=== PATIENT | female | born 1950 | race Caucasian/White ===

== ENCOUNTER 2021-08-08 22:42 | Inpatient (IN) | payer MEDICARE, OTHER ==
[~2021-08-08] VITALS: Ht 157.5 cm; Wt 49.9 kg
--- NOTE | 2021-08-08 22:50 | NUR ---
Patient brought in from [facility] on a 5150 for GD. Patient apparently was found crawling on the street, and oblivious to name and situation. Patient is a left below the knee amputee. Patient is alert but not oriented is able to verbalize, "I need my cigarettes." No sitter available, warehouse helper has no staff to provide, and cannot provide security for bedside sitting. Fall and safety precautions implemented per protocol
[2021-08-08] MEDS ORDERED: OXYCODONE/APAP 5-325 MG TABLET PO ONE (23:00)
[2021-08-08] MEDS ORDERED: OXYC-128 PO (23:06)
[2021-08-08] MEDS ORDERED: CIPR5DRO LEFTEYE (23:06)
--- NOTE | 2021-08-09 00:21 | NUR ---
Report given to FÉLIX Newman
--- NOTE | 2021-08-09 01:00 | NUR ---
Danya RN at [facility] informed of patient soft O2 saturations of 92%. Requesting another CXR from ERMD and to further evaluate patient.
--- NOTE | 2021-08-09 01:40 | NUR ---
ERMD placed order to redraw labs, and CTA chest angio to r/o any cardiopulmonary processes.
[2021-08-09] MEDS ORDERED: HALOPERIDOL LACTATE 5 MG/1 ML VIAL IV ONE (01:45)
[2021-08-09] MEDS ORDERED: diphenhydrAMINE 50 MG/1 ML VIAL IV ONE (01:45)
[2021-08-09] MEDS ORDERED: LORAZEPAM 2 MG/1 ML VIAL IV ONE (01:45)
[2021-08-09 01:52] LABS: HEMATOCRIT 39.1 % (31.2-41.9); MEAN CORPUSCULAR HEMOGLOBIN 30.7 uug (24.7-32.8); MEAN CORPUSCULAR VOLUME 91.3 fL (75.5-95.3); PLATELET COUNT (AUTO) 252 K/uL (179-408)
[2021-08-09] MEDS ORDERED: diphenhydrAMINE 50 MG/1 ML VIAL ONE (02:13)
[2021-08-09] MEDS ORDERED: LORAZEPAM 2 MG/1 ML VIAL ONE (02:13)
[2021-08-09] MEDS ORDERED: HALOPERIDOL LACTATE 5 MG/1 ML VIAL ONE (02:13)
[2021-08-09] MEDS ORDERED: IV NS 1000 ML 1,000 ML IV ONE (02:45)
[2021-08-09] MEDS ORDERED: IV NORMAL SALINE 250 ML IV ONE (02:46)
[2021-08-09] MEDS ORDERED: IOHEXOL 350 100 ML INFUS..BTL ONE (02:46)
[2021-08-09] MEDS ORDERED: SWABABLE VALVE TRANSFER SET EA MC ONE (02:46)
--- NOTE | 2021-08-09 03:18 | NUR ---
Patient back in room from CT
[2021-08-09] MEDS ORDERED: levoFLOXacin 500 MG/D5W 500 MG in PREMIXED 1 EACH IV SCH (04:45)
[2021-08-09] MEDS ORDERED: MAGNESIUM HYDROXIDE 30 ML LIQUID UDC PO PRN (04:45)
[2021-08-09] MEDS ORDERED: IV NS 1000 ML 1,000 ML IV PRN (04:45)
[2021-08-09] MEDS ORDERED: Z GUARD REMEDY PASTE 57 GM TUBE TOP PRN (04:45)
[2021-08-09] MEDS ORDERED: ACETAMINOPHEN 325 MG TABLET PO PRN (04:45)
--- NOTE | 2021-08-09 05:00 | NUR ---
Patient will be getting admitted to TELE on a 5150, according to FÉLIX Ty CN she states that there will be a sitter coming around 0630. Patient to go upstairs after shift change.
--- NOTE | 2021-08-09 06:31 | NUR ---
Patient in bed asleep, VSS, no acute distress noted. Bed in lowest position, sr upx2, call light within reach. Fall and safety precautions implemented per protocol. No sitter available per Classroom Teacher. Patient in need of a 1:1 sitter, but word processing supervisor is aware.
[2021-08-09] MEDS ORDERED: levoFLOXacin 500 MG/D5W 100 ML ONE (06:47)
--- NOTE | 2021-08-09 06:47 | NUR ---
Report given to FÉLIX Cruz for continuity of care.
--- NOTE | 2021-08-09 08:26 | NUR ---
PT WAS TRANSFERED TO ROOM #327. REPORT WAS GIVEN TO FÉLIX M/S.
[2021-08-09 08:30] VITALS: BP 90/49
--- NOTE | 2021-08-09 10:44 | NUR ---
Admitted a 71 years old patient from [facility] with history of chest pain, hypoxia and suapected pulmonary embolus, altered mental status. Pt. is on 5150 status for GD. Pt. arrived in a stretcher accompanied by RN. Initial report given by Anthony HEARD. On admission pt. was cooperative to physical assessment and vital signs. Skin body assessment revealed no significant skin integrity breakdown, left below knee amputation. Patient is on Regular Diet. Continent of bladder and bowel. Vital signs within normal limits. Pt. ambulates with assistance, wheel chair. On interview patient appeared alert, oriented to person, confused, redirectable. Patient denies SI/HI AH/VH.Patient is currently free from pain or any discomfort. Fall and safety precautions implemented.
[2021-08-09 11:08] VITALS: BP 136/78
--- NOTE | 2021-08-09 11:25 | NUR ---
ASSUMED CARE OF THIS PATIENT AT THIS TIME SHE IS IN BED WITH EYES CLOSED SHE IS EASILY AROUSABLE ATTEMPTS TO RESPOND WHEN SPOKE TO BUT HER WORDS ARE INCOHERENT PROMPTLY FALLS BACK TO SLEEP ON ROOM AIR WITH NO SHORTNESS OF BREATH SHE IS ON 5150 HOLD WITH A SITTER AT HER BEDSIDE RIGHT AC WITH HEPLOCK INTACT NOT IN DISTRESS AT THIS TIME WILL CONTINUE TO OBSERVE.
[2021-08-09 15:32] VITALS: BP 130/82
--- NOTE | 2021-08-09 17:44 | NUR ---
PATIENT IS CONFUSED AND DISORIENTED PICKING AT HER IV RIGHT ANTECUBITAL RE TAPPED AND COVERED WITH KIRLIX PATIENT IS CONFUSED AND DISORIENTED RAMBLING ABOUT HER SISTER STATED WAS SUPPOSED TO BE IN THE AIRPORT ASKED WHERE HER SISTER WAS LIVING STATED IN [place] ASKED WHAT HER SISTERS NAME IS UNABLE TO PROVIDE AN ANSWER CONTINUE TO REQUIRE AND HAS A ONE ON ONE SITTER AND IS ON HOLE SHE IS CONTINENT AND INCONTINENT RICARDO CARE PROVIDED ALL NEEDS ANTICIPATED AND SATISFIED EASILY REDIRECTABLE WILL CONTINUE TO OBSERVE.
[2021-08-09 20:00] VITALS: BP 139/86
[2021-08-09] MEDS ORDERED: AMOXICILLIN-CLAVUL 500-125MG TABLET PO SCH (21:00)
--- NOTE | 2021-08-09 23:11 | NUR ---
Patient in bed sleeping intermittently in no acute distress noted.Alert to her self .Confused.Re-oriented provided.Patient with episodes of trying to get of bed but able to redirect patient. Denies pain.Left knee BKA.Snacks provided.1:1 sitter at bedside.Patient compliant with medication .Due meds given.Received order from to transfer patient to [facility].Verified order by charge nurse. Ok patient to be transferred to GPS/MHU. Report given to Wendy/[facility]HU nurse.
[2021-08-10] MEDS ORDERED: ALBUTEROL SULFATE 2.5 MG/ 0.5 ML NEBU NEB SCH (01:30)
[2021-08-10] MEDS ORDERED: IPRATROPIUM BROMIDE 0.5 MG/2.5 ML NEBU NEB SCH (01:30)
== END 2021-08-10 00:50 | DRG 194 ==
LOC: ER 23:47 → GPS 08-09 00:38 → UNDOADMIN 08-09 00:38 → MEDSURG3 08-09 07:47
PROVIDERS: ADMIT Nurse Practitioner Acute Care; ATTEND Nurse Practitioner Acute Care
DX: J15.9 Unspecified bacterial pneumonia (principal); F03.91 Unspecified dementia, unspecified severity, with behavioral disturbance; F23 Brief psychotic disorder; Z86.73 Personal history of transient ischemic attack (TIA), and cerebral infarction without residual deficits; Z59.00 Homelessness unspecified; Z87.891 Personal history of nicotine dependence; F09 Unspecified mental disorder due to known physiological condition; G93.89 Other specified disorders of brain; I25.2 Old myocardial infarction; K75.9 Inflammatory liver disease, unspecified; Z99.3 Dependence on wheelchair
CPT/HCPCS: 36415; 71045; 71275; 85025; 87040; G0378; J1200; J1630; J1956; J2060; J7050; Q9967

== ENCOUNTER 2021-08-10 01:09 | Inpatient (IN) | payer MEDICARE, OTHER ==
[~2021-08-10] VITALS: Ht 152.4 cm; Wt 50.3 kg
[2021-08-10 01:00] VITALS: BP 101/71
--- NOTE | 2021-08-10 02:00 | NUR ---
ADMISSION NOTE: ADMITTED ONE HOUR EARLIER A 71 YEARS OLD FEMALE TO [facility] ON A 5150 FOR GD AND DTS. PATIENT WAS ADMITTED INITIALLY, SHE WAS ADMITTED TO MED SURG UNIT D/T HYPOXIA WITH POSSIBLE BACTERIAL PNEUMONIA. PATIENT WAS MEDICALLY CLEARED BY Tunde YUNG NP FOR ADMISSION TO [facility]. PER HOLD, PATIENT IS HOMELESS, SHE WAS BIB [employer] TO [facility] ER AFTER BEING FOUND CRAWLING ON THE FLOOR ON THE STREET. ON INTERVIEW, PATIENT CAN NOT RECALLED HER NAME OR ADDRESSES OR CONTACT INFORMATION. SHE THINKS PEOPLE ARE STEALING FROM HER. FACE TO FACE ASSESSMENT WAS DONE. PATIENT REFLECT WHAT IS WRITTEN ON THE HOLD. SHE IS A/O X 1 SHE IS FORGETFUL AND DELUSIONAL. SHE STATED, "I AM " PATIENT REQUIRED REDIRECTION. SHE DENIED SI OR ANY PLANS TO HARM SELF. SKIN ASSESSMENT DONE WELL A SHOWER. PATIENT HAS A H/O LEFT BKA. SHE IS UNDER THE CARE OF DR. THOMPSON. ADVISEMENT WAS GIVEN WELL HER BOOKLET FOR PATIENT RIGHT ON METAL FACILITIES. WILL CONTINUE TO MONITOR.
[2021-08-10] MEDS ORDERED: MAGNESIUM HYDROXIDE 30 ML LIQUID UDC PO PRN (02:30)
[2021-08-10] MEDS ORDERED: MAG HYDROX/AL HYDROX/SIMETH 30 ML LIQUID UDC PO PRN (02:30)
[2021-08-10] MEDS ORDERED: ACETAMINOPHEN 325 MG TABLET PO PRN (02:30)
[2021-08-10] MEDS: LORAZEPAM 1 MG TABLET PO PRN ×2 (04:03→08:48)
[2021-08-10] MEDS ORDERED: levoFLOXacin 500 MG TABLET PO SCH (06:45)
[2021-08-10] MEDS ORDERED: ALBUTEROL SULFATE 2.5 MG/3 ML NEBU NEB PRN (06:45)
[2021-08-10] MEDS ORDERED: IPRATROPIUM BROMIDE 0.5 MG/2.5 ML NEBU NEB PRN (06:45)
[2021-08-10 07:48] LABS: HEMATOCRIT 42.3 % (31.2-41.9); MEAN CORPUSCULAR HEMOGLOBIN 30.9 uug (24.7-32.8); PLATELET COUNT (AUTO) 288 K/uL (179-408)
[2021-08-10 08:09] LABS: CREATININE 0.7 mg/dL (0.6-1.3); POTASSIUM 3.2 mmol/L (3.5-5.1)
--- NOTE | 2021-08-10 08:29 | NUR ---
Dr. Gaming is called at 08:28 am to be aware of this patient hold that is up at 14:00 today.
[2021-08-10] MEDS: AMOXICILLIN-CLAVUL 500-125MG TABLET PO SCH ×2 (08:48→21:26)
[2021-08-10] MEDS: NICOTINE 14 MG/24HR PATCH TD SCH (08:48)
[2021-08-10 11:10] VITALS: BP 91/66
[2021-08-10] MEDS ORDERED: POTASSIUM CHLORIDE 20 MEQ TAB.PRT.SR PO ONE (12:00)
[2021-08-10 15:22] VITALS: BP 93/57
[2021-08-10 19:44] VITALS: BP 98/66
[2021-08-10] MEDS: CARBAMAZEPINE 200 MG TABLET PO SCH (21:26)
[2021-08-10] MEDS: ARIPIPRAZOLE 5 MG TABLET PO SCH (21:26)
[2021-08-10] MEDS: TEMAZEPAM 7.5 MG CAPSULE PO PRN (21:26)
[2021-08-11 07:52] VITALS: BP 98/46
[2021-08-11] MEDS: CARBAMAZEPINE 200 MG TABLET PO SCH ×2 (08:42→20:14)
[2021-08-11] MEDS: AMOXICILLIN-CLAVUL 500-125MG TABLET PO SCH ×2 (08:42→20:14)
[2021-08-11] MEDS: NICOTINE 14 MG/24HR PATCH TD SCH (08:43)
--- NOTE | 2021-08-11 16:19 | NUR ---
Pt. is received awake in her room. A/O X 2 to person. Pt. affect is cooperative, labile, disorganized, confused and forgetful at times. Compliant with medications. Ambulates with wheel chair, left leg amputated. Pt. is encourage to vent feelings and emotions. Fall and safety precautions implemented.
[2021-08-11 16:58] VITALS: BP 110/49
[2021-08-11] MEDS: ARIPIPRAZOLE 5 MG TABLET PO SCH (20:14)
[2021-08-11] MEDS: TEMAZEPAM 7.5 MG CAPSULE PO PRN (20:20)
[2021-08-11 21:07] VITALS: BP 99/52
[2021-08-12 07:30] VITALS: BP 112/72
[2021-08-12] MEDS: AMOXICILLIN-CLAVUL 500-125MG TABLET PO SCH ×2 (08:55→20:10)
[2021-08-12] MEDS: CARBAMAZEPINE 200 MG TABLET PO SCH ×2 (08:56→20:10)
[2021-08-12] MEDS: NICOTINE 14 MG/24HR PATCH TD SCH (08:56)
--- NOTE | 2021-08-12 14:42 | NUR ---
CHAO Initial Discharge Note Pt currently resides at [address] [place] [address], [id number], however it is uncertain at this time if the pt will return home after discharge or go to a facility. Further discharge planning will be decided upon discharge. CHAO will continue to work with pt, family, and MD to ensure a safe and proper discharge plan.
--- NOTE | 2021-08-12 15:37 | NUR ---
GPS: HEARING DONE TODAY AND PT HELD FOR 14DAY HOLD FOR GD. PT ATTENDED THE HEARING AND AGREED UPON THE HOLD
[2021-08-12 16:00] VITALS: BP 92/58
--- NOTE | 2021-08-12 18:26 | NUR ---
Gps/Pile Driving Technician- [place] self around, needy, demanding behavior , requesting Aspirin for headache, offered tylenol instead refused, claimed it does not help. Irritable , when being redirected. Tends to stay by the Nurses station , kept asking for her dirty clothes , informed needed to be wash r/t odorous smells.
[2021-08-12 20:05] VITALS: BP 131/88
[2021-08-12] MEDS: ARIPIPRAZOLE 5 MG TABLET PO SCH ×2 (20:10→22:30)
[2021-08-13 07:30] VITALS: BP 125/62
[2021-08-13] MEDS: NICOTINE 14 MG/24HR PATCH TD SCH (08:23)
[2021-08-13] MEDS: ENSURE ENLIVE (VAN) 240 ML LIQUID PO SCH (08:23)
[2021-08-13] MEDS: CARBAMAZEPINE 200 MG TABLET PO SCH ×2 (08:23→20:04)
[2021-08-13] MEDS: AMOXICILLIN-CLAVUL 500-125MG TABLET PO SCH ×2 (08:39→20:04)
[2021-08-13] MEDS: ARIPIPRAZOLE 5 MG TABLET PO SCH ×2 (09:34→21:54)
[2021-08-13 17:08] VITALS: BP 138/81
[2021-08-13 20:27] VITALS: BP 132/82
[2021-08-13] MEDS: TEMAZEPAM 7.5 MG CAPSULE PO PRN (22:08)
[2021-08-14] MEDS: LORAZEPAM 1 MG TABLET PO PRN (00:20)
[2021-08-14 07:30] VITALS: BP 137/71
[2021-08-14] MEDS: CARBAMAZEPINE 200 MG TABLET PO SCH ×3 (08:38→20:32)
[2021-08-14] MEDS: NICOTINE 14 MG/24HR PATCH TD SCH ×2 (08:38→08:50)
[2021-08-14] MEDS: ASPIRIN EC 81 MG TABLET.DR PO SCH (08:43)
[2021-08-14] MEDS: ENSURE ENLIVE (VAN) 240 ML LIQUID PO SCH (08:51)
--- NOTE | 2021-08-14 09:18 | NUR ---
DR CONN HERE TO SEE PATIENT STATED THAT HE IS COVERING FOR DR ROSSI AND I NOTIFIED HIM THAT THIS PATIENT REFUSED HER CHEST XRAY ORDERED STATED OKAY NO NEW ORDERS AT THIS TIME.
[2021-08-14] MEDS: ARIPIPRAZOLE 5 MG TABLET PO SCH ×2 (10:57→22:26)
--- NOTE | 2021-08-14 18:00 | NUR ---
UP IN THE CHAIR REMAIN HYPERVOCAL OFFERED ATIVAN TO ASSIST HER TO RELAX A LITTLE BIT BUT SHE REFUSED WILL CONTINUE TO PROVIDE SAFE AND THERAPEUTIC ENVIRONMENT AT ALL TIMES.
[2021-08-14] MEDS: TEMAZEPAM 7.5 MG CAPSULE PO PRN (20:33)
[2021-08-15 08:05] VITALS: BP 143/56
[2021-08-15] MEDS: NICOTINE 14 MG/24HR PATCH TD SCH (08:22)
[2021-08-15] MEDS: ENSURE ENLIVE (VAN) 240 ML LIQUID PO SCH (08:22)
[2021-08-15] MEDS: ASPIRIN EC 81 MG TABLET.DR PO SCH (08:22)
[2021-08-15] MEDS: CARBAMAZEPINE 200 MG TABLET PO SCH ×2 (08:30→21:00)
[2021-08-15 10:17] LABS: HEMATOCRIT 41.2 % (31.2-41.9); MEAN CORPUSCULAR HEMOGLOBIN 30.5 uug (24.7-32.8); MEAN CORPUSCULAR VOLUME 90.7 fL (75.5-95.3); PLATELET COUNT (AUTO) 372 K/uL (179-408)
[2021-08-15] MEDS: ARIPIPRAZOLE 5 MG TABLET PO SCH (10:21)
[2021-08-15 10:42] LABS: BILIRUBIN,TOTAL 0.2 mg/dL (0.2-1.0); CREATININE 0.6 mg/dL (0.6-1.3); MAGNESIUM 2.4 mg/dL (1.8-2.4); PHOSPHOROUS 3.6 mg/dL (2.5-4.9); POTASSIUM 4.2 mmol/L (3.5-5.1); THYROID STIMULATING HORMONE 0.449 mIU/mL (0.358-3.740); TOTAL PROTEIN, SERUM 7.8 g/dL (6.4-8.2)
[2021-08-15 16:05] VITALS: BP 154/86
[2021-08-15 20:00] VITALS: BP 157/94
[2021-08-15] MEDS: TEMAZEPAM 7.5 MG CAPSULE PO PRN (20:21)
[2021-08-15] MEDS ORDERED: ARIPIPRAZOLE 10 MG TABLET PO ONE (20:30)
--- NOTE | 2021-08-16 06:26 | NUR ---
HAVING SHORT EPISODE OF YELLING AND SCREAMING X2 DURING THE NIGHT WHEN SHE ASKED FOR THE KEITA TO LOCK HER ROOM. THEN SHE GOT ANGRY WHEN WAS TOLD THAT EVERY ROOMS NEED TO BE UNLOCKED.SETTING LIMITS NEEDED.NO OTHER BEHAVIORAL ISSUES.
[2021-08-16 07:28] VITALS: BP 146/85
[2021-08-16] MEDS: ASPIRIN EC 81 MG TABLET.DR PO SCH (08:39)
[2021-08-16] MEDS: CARBAMAZEPINE 200 MG TABLET PO SCH (08:40)
[2021-08-16] MEDS: NICOTINE 14 MG/24HR PATCH TD SCH (08:41)
[2021-08-16] MEDS: ARIPIPRAZOLE 5 MG TABLET PO SCH ×2 (08:41→16:52)
[2021-08-16] MEDS: ENSURE ENLIVE (VAN) 240 ML LIQUID PO SCH (09:07)
[2021-08-16] MEDS: AMLODIPINE 5 MG TABLET PO SCH (09:55)
[2021-08-16] MEDS ORDERED: diphenhydrAMINE 50 MG/1 ML VIAL IM ONE (13:15)
[2021-08-16] MEDS ORDERED: LORAZEPAM 2 MG/1 ML VIAL IM ONE ×2 (13:15→19:45)
[2021-08-16] MEDS ORDERED: HALOPERIDOL LACTATE 5 MG/1 ML VIAL IM ONE (13:15)
--- NOTE | 2021-08-16 13:26 | NUR ---
Pt. became aggressive, threatening staff, cussing, banging the patio exit door with her wheel chair, punching guardado and hospital property. Dr. Gaming was called and ordered Haldol 5 mg IM, Ativan 2 mg IM, Benadryl 25 mg IM, will be monitored for effectiveness. Addendum: 08/16/21 at 1334 by EDILMA GARNICA RN Fall and safety precautions implemented.
--- NOTE | 2021-08-16 15:29 | NUR ---
Patient is received awake in her room. A/OX 2 to person. Pt. affect is accusatory, suspicious and selective with medications, paranoid about persecution " Someone is after me". Internal responding, , VH. Pt. was talking to the wall and replying it. Pt. has amputated left leg, skin intact. Ambulates with wheel chair. Requires minimal assistance with ADL. Reality orientation provided. Fall and safety precautions implemented.
--- NOTE | 2021-08-16 15:51 | NUR ---
SNF Referral: SW sent clinicals for placement option to [facility] and spoke to Zack hospice spiritual care coordinator . CHAO faxed face sheet, h&p, consult notes, last 3 progress notes, medication list, and labs.
[2021-08-16 15:56] VITALS: BP 108/68
--- NOTE | 2021-08-16 15:59 | NUR ---
SNF Referral: CHAO sent clinicals for placement option to [facility] for placement option. CHAO faxed face sheet, h&p, MD consult notes, last 3 progress notes, medication list, and labs to [facility] recreation activities coordinator.
[2021-08-16] MEDS ORDERED: chlorproMAZINE 50 MG/2 ML AMPUL IM ONE (19:45)
[2021-08-16] MEDS ORDERED: CARBAMAZEPINE 200 MG TABLET PO SCH (21:00)
[2021-08-17] MEDS: LORAZEPAM 1 MG TABLET PO PRN (06:14)
[2021-08-17] MEDS: AMLODIPINE 5 MG TABLET PO SCH (09:00)
[2021-08-17] MEDS ORDERED: chlorproMAZINE 25 MG TABLET PO SCH ×2 (09:00)
[2021-08-17] MEDS: CARBAMAZEPINE 200 MG TABLET PO SCH ×3 (09:00→18:25)
[2021-08-17] MEDS: ASPIRIN EC 81 MG TABLET.DR PO SCH (09:04)
[2021-08-17] MEDS: chlorproMAZINE 25 MG TABLET PO SCH ×3 (09:04→18:25)
[2021-08-17] MEDS: ENSURE ENLIVE (VAN) 240 ML LIQUID PO SCH (09:05)
[2021-08-17] MEDS: NICOTINE 14 MG/24HR PATCH TD SCH (09:05)
--- NOTE | 2021-08-17 09:19 | NUR ---
GPS: PT AWAKE AND LERT, CONFUSED, WHEELING AROUND THE HALLWAY AND ON AWOL PRECAUTION. PT NO AGITATION AT THIS TIME. REFUSED TEGRETOL MEDICATION STATING " I DONT NEED THIS MEDICATION, THIS IS MY BODY AND I REFUSE IT". EXPLAINED THE RISK AND BENIFITS.
--- NOTE | 2021-08-17 10:02 | NUR ---
SW Discharge Plan Update CHAO spoke with Zack ([phone]) payroll and benefits coordinator at [address] [address] ([phone]) who stated pt will be accepted at the facility when she is ready for discharge.
[2021-08-17 10:33] VITALS: BP 94/67
[2021-08-17 15:30] VITALS: BP 90/59
[2021-08-17 21:23] VITALS: BP 97/71
[2021-08-18 07:30] VITALS: BP 91/54
[2021-08-18] MEDS: NICOTINE 14 MG/24HR PATCH TD SCH (08:34)
[2021-08-18] MEDS: AMLODIPINE 5 MG TABLET PO SCH (08:34)
[2021-08-18] MEDS: CARBAMAZEPINE 200 MG TABLET PO SCH ×3 (08:34→17:00)
[2021-08-18] MEDS: chlorproMAZINE 25 MG TABLET PO SCH ×3 (08:34→17:00)
[2021-08-18] MEDS: ENSURE ENLIVE (VAN) 240 ML LIQUID PO SCH (08:34)
[2021-08-18] MEDS: ASPIRIN EC 81 MG TABLET.DR PO SCH (08:34)
[2021-08-18] MEDS: DOCUSATE SODIUM 100 MG CAPSULE PO SCH ×2 (11:22→21:33)
[2021-08-18 16:00] VITALS: BP 94/58
--- NOTE | 2021-08-18 20:07 | NUR ---
GPS: PT VERBALLY ABUSIVE. ASKING FOR CIGARETTE AND WOULD LIKE TO SMOKE. PT YELLS AND SCREAMS AND PACING ALONG THE HALLWAY. PT REFUSED ALL THE 1700 MEDICATIONS TODAY, EVEN EXPLAINED THE RISK AND BENIFITS.
[2021-08-18] MEDS: LORAZEPAM 1 MG TABLET PO PRN (21:34)
[2021-08-19 07:30] VITALS: BP 114/74
[2021-08-19] MEDS: CARBAMAZEPINE 200 MG TABLET PO SCH ×4 (09:00→17:00)
[2021-08-19] MEDS: DOCUSATE SODIUM 100 MG CAPSULE PO SCH ×2 (09:00→20:39)
[2021-08-19] MEDS: ASPIRIN EC 81 MG TABLET.DR PO SCH (09:05)
[2021-08-19] MEDS: ENSURE ENLIVE (VAN) 240 ML LIQUID PO SCH (09:06)
[2021-08-19] MEDS: chlorproMAZINE 25 MG TABLET PO SCH ×3 (09:06→17:05)
[2021-08-19] MEDS: AMLODIPINE 5 MG TABLET PO SCH (09:06)
[2021-08-19] MEDS: NICOTINE 14 MG/24HR PATCH TD SCH (09:07)
--- NOTE | 2021-08-19 14:22 | NUR ---
GPS: PT REFUSED 1300 MEDICATIONS TEGRETOL AND THORAZINE. EXPLAINED RISK AND BEIFITS OF TAKING. PT AGITATED.
[2021-08-19 16:00] VITALS: BP 102/54
--- NOTE | 2021-08-19 17:56 | NUR ---
GPS: PT HAD LOOSE BOWEL MOVEMENT X 4. MD ORDERED IMODIUM. PT ENCOURAGED TO INCREASE FOOD AND FLUID INTAKE TO PREVENT DEHYDRATION.
[2021-08-19] MEDS ORDERED: LOPERAMIDE HCL 2 MG CAPSULE PO PRN (18:00)
[2021-08-19] MEDS ORDERED: LOPERAMIDE HCL 2 MG CAPSULE PO ONE (18:00)
[2021-08-19 20:14] VITALS: BP 106/52
[2021-08-19] MEDS: LORAZEPAM 1 MG TABLET PO PRN (22:57)
[2021-08-19] MEDS: TEMAZEPAM 7.5 MG CAPSULE PO PRN (22:57)
--- NOTE | 2021-08-20 05:33 | NUR ---
Patient up all night, despite receiving medication for sleep and anxiety. In her wheelchair, back and forth , yelling at the staff, demanding things and verbalizing delusional thoughts. Redirection and distraction were attempted but had little to no effect. This patient was unable to engage in any meaningful conversation with this assembly instructions writer at any time during the shift. Eventually, the patient went to bed. Continuing to monitor for safety and behavior escalation.
[2021-08-20 07:30] VITALS: BP 92/62
[2021-08-20] MEDS: ASPIRIN EC 81 MG TABLET.DR PO SCH (08:45)
[2021-08-20] MEDS: DOCUSATE SODIUM 100 MG CAPSULE PO SCH ×2 (08:45→20:03)
[2021-08-20] MEDS: NICOTINE 14 MG/24HR PATCH TD SCH (08:45)
[2021-08-20] MEDS: ENSURE ENLIVE (VAN) 240 ML LIQUID PO SCH (08:46)
[2021-08-20] MEDS: AMLODIPINE 5 MG TABLET PO SCH (08:46)
[2021-08-20] MEDS: CARBAMAZEPINE 200 MG TABLET PO SCH ×3 (08:46→16:33)
[2021-08-20] MEDS: chlorproMAZINE 25 MG TABLET PO SCH ×3 (08:50→16:33)
--- NOTE | 2021-08-20 12:07 | NUR ---
PT CONTINUES TO REFUSE HER TEGRETOL AND THORAZINE. STATES TEGRETOL MAKES HER FEEL "MANIC" AND SHE DOESN'T NEED TEGRETOL BECAUSE "IM NOT PSYCHOTIC."
[2021-08-20 17:22] VITALS: BP 130/70
[2021-08-20] MEDS: OLANZAPINE 5 MG TABLET PO SCH (20:03)
[2021-08-20 20:05] VITALS: BP 118/64
[2021-08-20] MEDS: TEMAZEPAM 7.5 MG CAPSULE PO PRN (21:47)
[2021-08-21] MEDS: LORAZEPAM 1 MG TABLET PO PRN ×2 (01:53→13:18)
[2021-08-21 07:53] VITALS: BP 117/69
[2021-08-21] MEDS: ASPIRIN EC 81 MG TABLET.DR PO SCH (08:06)
[2021-08-21] MEDS: OLANZAPINE 5 MG TABLET PO SCH ×2 (08:06→20:19)
[2021-08-21] MEDS: NICOTINE 14 MG/24HR PATCH TD SCH (08:07)
[2021-08-21] MEDS: CARBAMAZEPINE 200 MG TABLET PO SCH ×3 (08:07→16:46)
[2021-08-21] MEDS: AMLODIPINE 5 MG TABLET PO SCH (08:07)
[2021-08-21] MEDS: DOCUSATE SODIUM 100 MG CAPSULE PO SCH ×2 (08:07→20:19)
[2021-08-21] MEDS: ENSURE ENLIVE (VAN) 240 ML LIQUID PO SCH (08:15)
--- NOTE | 2021-08-21 13:19 | NUR ---
Patient is given Ativan 1 mg at 13:18 for anxiety, agitation, will be monitored for effectiveness.
--- NOTE | 2021-08-21 15:24 | NUR ---
Pt. is received awake in her room. A/OX 2 to person, place. Pt. affect is suspicious, labile, manipulative, anxious. Pt. is given Ativan at 13:18, semi effective. Pt. refuses medications at times. Patient craves cigarettes and becomes very irritable, nicotine patch on place. Ambulates with wheel chair, left BKA. Incontinent. Pt. is encourage to verbalize concerns. Fall and safety precautions implemented.
[2021-08-21 16:24] VITALS: BP 97/60
[2021-08-22 07:43] VITALS: BP 112/73
[2021-08-22] MEDS: ASPIRIN EC 81 MG TABLET.DR PO SCH (08:55)
[2021-08-22] MEDS: NICOTINE 14 MG/24HR PATCH TD SCH (08:55)
[2021-08-22] MEDS: DOCUSATE SODIUM 100 MG CAPSULE PO SCH ×2 (08:55→22:00)
[2021-08-22] MEDS: OLANZAPINE 5 MG TABLET PO SCH ×2 (08:55→22:00)
[2021-08-22] MEDS: AMLODIPINE 5 MG TABLET PO SCH (08:55)
[2021-08-22] MEDS: CARBAMAZEPINE 200 MG TABLET PO SCH ×3 (08:55→16:02)
[2021-08-22] MEDS: ENSURE ENLIVE (VAN) 240 ML LIQUID PO SCH (08:59)
--- NOTE | 2021-08-22 11:28 | NUR ---
PT EXHIBITS BIZARRE, DELUSIONAL BEHAVIOR. PT IS DISORGANIZED THOUGHT PROCESS. STATES THE COOK JELLY DR. PADILLA IS "RAPING" HER AND THAT SHE IS A LESBIAN AND ENJOYS THE COMPANY OF OTHER LESBIANS. REORIENTED TO REALITY. INTERNALLY PREOCCUPIED. Addendum: 08/22/21 at 1131 by XIMENA RIZZO RN PLEASE DISREGARD THIS NOTE. WRONG PATIENT ENTRY.
[2021-08-22 15:57] VITALS: BP 94/64
[2021-08-23] MEDS: NICOTINE 14 MG/24HR PATCH TD SCH ×2 (09:00→15:12)
[2021-08-23] MEDS: AMLODIPINE 5 MG TABLET PO SCH (09:00)
[2021-08-23] MEDS: CARBAMAZEPINE 200 MG TABLET PO SCH ×3 (09:00→16:58)
[2021-08-23] MEDS: OLANZAPINE 5 MG TABLET PO SCH ×3 (09:00→21:59)
[2021-08-23] MEDS: ENSURE ENLIVE (VAN) 240 ML LIQUID PO SCH (09:00)
[2021-08-23] MEDS: ASPIRIN EC 81 MG TABLET.DR PO SCH (09:00)
[2021-08-23] MEDS: DOCUSATE SODIUM 100 MG CAPSULE PO SCH ×2 (09:00→20:21)
[2021-08-23 16:12] VITALS: BP 124/81
--- NOTE | 2021-08-23 17:01 | NUR ---
Patient has been refusing scheduled PO medication throughtout this shift. Patient states she will not take the medications because "they make me more hyper" and that they aren't from her pharmacy so she cannot trust what medication she is taking despite receiving education about medication. Patient educated about importance of medication but she is refusing to participate. Patient is angry, easily agitated, verbally abusive with staff, and Addendum: 08/23/21 at 1704 by DONALDO TOLEDO RN is needy and demanding. Patient requires constant redirection and reality orientation. Patient yells at staff to leave her room and then will come to the nurses station to curse at staff. Patient redirected to her assigned room. Patient uses wheelchair for ambulation due to left BKA. Patient able to transfer independently from bed to wheelchair. Tolerates food and fluids. Bed is in low and locked position. Patient educated about impulse control and communicating needs appropriately to staff.
[2021-08-23 20:14] VITALS: BP 143/84
--- NOTE | 2021-08-23 22:00 | NUR ---
RECEIVED PATIENT IN THE HALLWAY. SHE IS NOTES A/O X 2, SHE IS EASILY IRRITABLE, HYPERVERBAL, SARCASTIC, UNCOOPERATIVE, DEMANDING AND ARGUMENTATIVE. PATIENT IS HARD TO REDIRECT. SHE INITIALLY REFUSED ZYPREXA QHS; HOWEVER, WHEN DR. THOMPSON CAME TO THE UNIT, TO EVALUATED HER, SHE RELUCTANTLY TOOK THE ZYPREXA QHS. SHE WAS REASSURED FOR HER SAFETY. SAFETY AND FALL PRECAUTION ARE IN PLACE. V/S STABLE. SHE WAS GIVEN PO FLUIDS AND SNACKS. WILL CONTINUE TO MONITOR.
[2021-08-23] MEDS: TEMAZEPAM 7.5 MG CAPSULE PO PRN (22:30)
--- NOTE | 2021-08-24 06:50 | NUR ---
PATIENT SLEPT FOR APPROX 2 HRS THROUGH THE NIGHT. SHE CONTINUE EASILY IRRITABLE, BELLIGERENT, AND SARCASTIC. WILL CONTINUE TO MONITOR.
[2021-08-24 07:30] VITALS: BP 123/79
[2021-08-24] MEDS: NICOTINE 14 MG/24HR PATCH TD SCH (08:51)
[2021-08-24] MEDS: DOCUSATE SODIUM 100 MG CAPSULE PO SCH ×2 (08:51→20:46)
[2021-08-24] MEDS: ASPIRIN EC 81 MG TABLET.DR PO SCH (08:51)
[2021-08-24] MEDS: OLANZAPINE 5 MG TABLET PO SCH ×3 (08:52→20:46)
[2021-08-24] MEDS: AMLODIPINE 5 MG TABLET PO SCH (08:52)
[2021-08-24] MEDS: CARBAMAZEPINE 200 MG TABLET PO SCH ×5 (08:52→21:14)
[2021-08-24] MEDS: ENSURE ENLIVE (VAN) 240 ML LIQUID PO SCH ×3 (09:09→17:37)
--- NOTE | 2021-08-24 09:10 | NUR ---
Patient is selective with medications and refuses scheduled Zyprexa at this time.
[2021-08-24] MEDS ORDERED: HALOPERIDOL LACTATE 5 MG/1 ML VIAL IM ONE (10:30)
[2021-08-24] MEDS ORDERED: LORAZEPAM 2 MG/1 ML VIAL IM ONE (10:30)
[2021-08-24] MEDS ORDERED: diphenhydrAMINE 50 MG/1 ML VIAL IM ONE (10:30)
--- NOTE | 2021-08-24 11:11 | NUR ---
Patient became agitated, aggressive, combative, striking towards staff. Dr. Gaming was called and prescribed Haldol 5 mg IM, Benadryl 25 mg IM, Ativan 2 mg IM at 10:55, will be monitored for effectiveness. Three people were in the room when the medication was administered, no force needed.
[2021-08-24 16:00] VITALS: BP 98/62
--- NOTE | 2021-08-24 16:59 | NUR ---
Received patient sleeping in her room. A/O X 2 to person, place. Pt. affect is demanding, aggressive, irritable, anxious, combative towards staff. Patient refuses Psych medications, selective and suspicious with pills. Ambulates with wheel chair, BKA left leg. Reality orientation provided. Fall and safety precautions implemented.
[2021-08-24 20:13] VITALS: BP 100/64
[2021-08-24] MEDS: diphenhydrAMINE 50 MG CAPSULE PO PRN (22:34)
--- NOTE | 2021-08-25 05:49 | NUR ---
Received the patient at the start of the shift, wheeling up and down the guillermo. She was calm but delusional and fixated on " Moving my Volkswagen Bug out of the front parking area". Reorientation and reality based conversation had little effect. This patient did however agree to take the Zyprexa and Tegretol PO that was ordered. No behavior escalation or yelling during the shift, just multiple requests and attention seeking behavior. Safety Stratiges are in place.
[2021-08-25 07:30] VITALS: BP 111/66
[2021-08-25] MEDS: NICOTINE 14 MG/24HR PATCH TD SCH (08:54)
[2021-08-25] MEDS: AMLODIPINE 5 MG TABLET PO SCH (08:55)
[2021-08-25] MEDS: ASPIRIN EC 81 MG TABLET.DR PO SCH (08:55)
[2021-08-25] MEDS: DOCUSATE SODIUM 100 MG CAPSULE PO SCH ×3 (08:55→20:20)
[2021-08-25] MEDS: OLANZAPINE 5 MG TABLET PO SCH ×2 (08:56→20:20)
[2021-08-25] MEDS: CARBAMAZEPINE 200 MG TABLET PO SCH ×3 (08:57→17:09)
[2021-08-25] MEDS: ENSURE ENLIVE (VAN) 240 ML LIQUID PO SCH ×2 (09:17→17:11)
[2021-08-25] MEDS: LORAZEPAM 1 MG TABLET PO PRN (15:23)
[2021-08-25 16:00] VITALS: BP 106/61
--- NOTE | 2021-08-25 16:01 | NUR ---
Received patient awake in her room. A/O X 2 to person, place. Pt. affect is labile, demanding, restless, hyperverbal, anxious. Ativan 1 mg is given at 15:25 for anxiety, will be monitored for effectiveness. Compliant with medications. BKA left leg. Ambulates with wheelchair. Emotional support provided. Fall and safety precautions implemented.
[2021-08-25 20:18] VITALS: BP 111/69
--- NOTE | 2021-08-26 02:13 | NUR ---
Received patient in the hallway, hyperverbal, demanding, easily irritable, anxious, has poor insight and poor judgement. Med compliant. Patient will remain in a psych facility for further evaluation and treatment.
[2021-08-26 07:30] VITALS: BP 120/74
[2021-08-26] MEDS: ENSURE ENLIVE (VAN) 240 ML LIQUID PO SCH ×2 (08:32→17:12)
[2021-08-26] MEDS: AMLODIPINE 5 MG TABLET PO SCH (08:33)
[2021-08-26] MEDS: OLANZAPINE 5 MG TABLET PO SCH ×2 (08:33→21:29)
[2021-08-26] MEDS: ASPIRIN EC 81 MG TABLET.DR PO SCH (08:33)
[2021-08-26] MEDS: DOCUSATE SODIUM 100 MG CAPSULE PO SCH ×3 (08:33→21:00)
[2021-08-26] MEDS: NICOTINE 14 MG/24HR PATCH TD SCH (08:33)
[2021-08-26] MEDS: CARBAMAZEPINE 200 MG TABLET PO SCH ×3 (08:33→17:09)
--- NOTE | 2021-08-26 09:04 | NUR ---
patient refused colace 100 mg po.
--- NOTE | 2021-08-26 15:50 | NUR ---
Received patient awake in her room. A/O X 2 -3 to person, place. Pt. affect is restless, anxious, fixated on cigarettes, hyperverbal. Compliant with medications. Ambulates with wheel chair, BKA left leg. Reality orientation provided. Fall and safety precautions implemented.
[2021-08-26 16:00] VITALS: BP 121/71
[2021-08-26 20:00] VITALS: BP 118/72
[2021-08-26] MEDS: diphenhydrAMINE 50 MG CAPSULE PO PRN (21:28)
[2021-08-27 07:30] VITALS: BP 115/75
[2021-08-27] MEDS: DOCUSATE SODIUM 100 MG CAPSULE PO SCH (08:26)
[2021-08-27] MEDS: NICOTINE 14 MG/24HR PATCH TD SCH (08:26)
[2021-08-27] MEDS: OLANZAPINE 5 MG TABLET PO SCH (08:26)
[2021-08-27] MEDS: ENSURE ENLIVE (VAN) 240 ML LIQUID PO SCH (08:26)
[2021-08-27] MEDS: CARBAMAZEPINE 200 MG TABLET PO SCH (08:26)
[2021-08-27] MEDS: ASPIRIN EC 81 MG TABLET.DR PO SCH (08:26)
[2021-08-27 08:27] VITALS: BP 115/77
[2021-08-27] MEDS: AMLODIPINE 5 MG TABLET PO SCH (08:27)
--- NOTE | 2021-08-27 09:56 | NUR ---
CHAO Discharge Note Pt will be discharged to [facility] [place] [address] ([phone]). CHAO spoke with admin coordinator, David and Dov ([phone]) at the facility who states they are ready to accept the patient today. Pt is aware and agreeable with discharge plans. Pt is alert and oriented x0, is unable to plan for self-care at this time; however, is willing to accept care at SNF. Pt denies any suicidal or homicidal ideation. Pt will follow-up at the facility with Psychiatrist, Dr. Gaming and Blood And Plasma Laboratory Assistant, Dr. Chairez. Pt presents with calm mood and congruent affect.
--- NOTE | 2021-08-27 11:03 | NUR ---
Social Work Coordination of Care: Counseling Center Manager faxed patient's referral packet including: History and Physical, Consultation, Progress Notes, Medication List and Labs to the following facilities for review and possible long-term placement: [facility] [address] [place] [address] T: ([phone]) F: ([phone]).
--- NOTE | 2021-08-27 11:04 | NUR ---
Firearms Report: Interior Design Professor completed and submitted a [employer] firearms report for 5150 grave disability and a danger to herself certifications. A copy of report has been placed in patient chart.
--- NOTE | 2021-08-27 11:38 | NUR ---
PT LEFT UNIT ON [facility] WITH 2 EMT'S. CALM AND COOPERATIVE. ABLE TO MAKE SOME NEEDS KNOWN. NO AGGRESSIVE OR COMBATIVE BEHAVIOR NOTED. LEFT UNIT WITH ALL NOTED BELONGINGS AND PAPERWORK. V/S STABLE. IN NO ACUTE DISTRESS.
== END 2021-08-27 11:40 | DRG 885 ==
LOC: GPS 01:09
PROVIDERS: ADMIT Psychiatry & Neurology Psychiatry; ATTEND Internal Medicine
DX: F31.64 Bipolar disorder, current episode mixed, severe, with psychotic features (principal); F01.50 Vascular dementia, unspecified severity, without behavioral disturbance, psychotic disturbance, mood disturbance, and anxiety; J18.9 Pneumonia, unspecified organism; D68.69 Other thrombophilia; E87.6 Hypokalemia; Z20.822 Contact with and (suspected) exposure to COVID-19; I70.0 Atherosclerosis of aorta; R73.9 Hyperglycemia, unspecified; I25.2 Old myocardial infarction; R62.7 Adult failure to thrive; Z68.21 Body mass index [BMI] 21.0-21.9, adult; K45.8 Other specified abdominal hernia without obstruction or gangrene; Z99.3 Dependence on wheelchair; Z59.00 Homelessness unspecified; Z87.891 Personal history of nicotine dependence
CPT/HCPCS: 36415; 83605; 83735; 84100; 84443; 85025; 97161; J1200; J1630; J2060; J3230; Q0161; Q0163

== ENCOUNTER 2022-01-12 06:38 | Day surgery (SDC) | payer MEDICARE, OTHER ==
[~2022-01-12 06:38] MED LIST: ACETYLCHOLINE CHLORIDE 1% OPHT 1 EA KIT ONE; BALANCED SALT IRRIG SOLN COMB1 500 ML ONE; BALANCED SALT IRRIG SOLN COMB2 15 ML IRRIG.SOLN ONE; BUPIVACAINE PF 0.5% 30 ML VIAL ONE; HYALURONATE SODIUM 12.8 MG/0.8 ML DISP.SYRIN ONE; HYALURONIDASE,OVINE 200 UNITS/ML VIAL ONE; LIDOCAINE-MPF 2% 5 ML VIAL ONE; MOXIFLOXACIN HCL 3 ML OPHT DROPS ONE; NEO/POLYMYX B/DEXAME OPHT OINT 3.5 GM TUBE ONE; TIMOLOL MALEATE 0.5% OPHT DROP 5 ML BOTTLE ONE; TRYPAN BLUE 0.5 ML DISP.SYRIN ONE
[2022-01-12] MEDS ORDERED: CIPROFLOXACIN 0.3% OPHT DROP 2.5 ML BOTTLE ONE (07:05)
[2022-01-12] MEDS ORDERED: CYCLOPENTOLATE 1% OPHT DROP 2 ML BOTTLE ONE (07:05)
[2022-01-12] MEDS ORDERED: TROPICAMIDE 1% OPHT DROP 3 ML BOTTLE ONE (07:06)
[2022-01-12] MEDS ORDERED: KETOROLAC 0.5% OPHT DROP 3 ML BOTTLE ONE (07:06)
[2022-01-12] MEDS ORDERED: PHENYLEPHRINE 2.5% OPHT DROP 2 ML BOTTLE ONE (07:06)
[2022-01-12] MEDS ORDERED: FENTANYL CITRATE 100 MCG/2 ML AMPUL ONE (07:48)
== END 2022-01-12 10:02 ==
LOC: DS 06:38
PROVIDERS: ATTEND Ophthalmology
DX: H25.89 Other age-related cataract (principal); J44.9 Chronic obstructive pulmonary disease, unspecified; M19.90 Unspecified osteoarthritis, unspecified site; F41.9 Anxiety disorder, unspecified; F17.210 Nicotine dependence, cigarettes, uncomplicated; Z85.3 Personal history of malignant neoplasm of breast; Z79.899 Other long term (current) drug therapy; Z98.890 Other specified postprocedural states; Z88.8 Allergy status to other drugs, medicaments and biological substances
CPT/HCPCS: 66984; J3010; J3471; J3490 ×2; J7120; J7321; A4663; Q9968; V2632